=== PATIENT | female | born 1980 | race Caucasian/White ===

== ENCOUNTER 2018-01-27 22:28 | Emergency (ER) | payer OTHER ==
[2018-01-27] MEDS ORDERED: SUMAtriptan SUCCINATE 6 MG/0.5 ML VIAL SQ ONE ×2 (23:07→23:08)
--- NOTE | 2018-01-27 23:13 | ED Physician Documentation ---
Headache - HISTORIAN Historian: patient, spouse - HPI Stated Complaint: Migraine LE Chief Complaint: Headache Onset: other (30 days; worse tonight) Timing: still present, worse Exposure To: none Severity: severe Quality: similar to previous Associated Symptoms: sensitivity to light, nausea. denies: fever, chills, sweating, vomiting, neck pain, stiffness, speech problems, weakness, trouble walking, tingling, numbness, dizziness, light-headedness Further Comments: yes (38 year old female patient presents with complaints of headache for the past month. Patient has been started on HCTZ for HTN, was seen by ENT today - CT head completed, MRI completed, seen in ER in [place]. Tried topamax with no improvement. C/O photophobia and mild nausea.) - ROS NEURO/PSYCH: denies: confusion, anxiety, depression, fainting, other EYES/ENT: denies: sore throat, difficulty swallowing, sinus pain, drainage, other CVS/RESP: none GI/: denies: abdominal pain, diarrhea, problems urinating, incontinence, other MS/SKIN/LYMPH: denies: muscle aches, back pain, rash, skin lesions, swollen glands, other - PAST HX Medical History: hypertension, other (seasonal allergies) Allergies/Adverse Reactions: Allergies Allergy/AdvReac Type Severity Reaction Status Date / Time No Known Allergies Allergy Unverified 01/27/18 22:47 Home Medications: Ambulatory Orders Medication Instructions Recorded Azelastine HCl [Astelin] 137 mcg NS BID 01/27/18 Cetirizine HCl [Zyrtec] 10 mg PO DAILY 01/27/18 Hydrochlorothiazide 25 mg PO DAILY 01/27/18 [Hydrochlorothiazide] Potassium Chloride [Klor-Con M20] 20 meq PO DAILY 01/27/18 Tramadol HCl [Ultram] 50 mg PO TID PRN 01/27/18 - SOCIAL HX Smoking History: non-smoker - Family HX Family History: denies: none - VITAL SIGNS Vital Signs: Vital Signs Temp Pulse Resp BP Pulse Ox 98.6 F 96 H 16 128/77 96 01/28/18 00:04 01/28/18 00:04 01/28/18 00:04 01/28/18 00:04 01/28/18 00:04 - REVIEWED ASSESSMENTS Nursing Assessment Reviewed: Yes Vitals Reviewed: Yes Progress - Progress Progress: Medicated with imitrex SQ Patient states she feels better; c/o mild nausea and state "head feels sore". Will medicate with toradol and promethazine prior to discharge. ED Results Lab/Radiology - Orders Orders: ED Orders Category Date Time Status Ketorolac Tromethamine [Toradol] Med 01/27/18 23:32 Discontinued 60 mg IM NOW ONE Promethazine HCl [Phenergan] Med 01/27/18 23:32 Discontinued 25 mg IM NOW ONE SUMAtriptan SUCCINATE [Imitrex] Med 01/27/18 23:07 Discontinued 6 mg SQ .STK-MED ONE SUMAtriptan SUCCINATE [Imitrex] Med 01/27/18 23:08 Discontinued 6 mg SQ NOW ONE Headache Physical Exam - EXAM General Appearance: moderate distress EENT: no facial swelling, eyes nml inspection, PERRL, nml ENT, pharynx nml, other (photophobia) Respiratory: no resp distress, chest non-tender, breath sounds normal CVS: reg. 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/PSYCH Higher Functions: alert, oriented x3, nml speech, mood/affect nml Cranial: nml as tested, no evidence of acute CVA Cerebellar: nml as tested, nml gait Sensorimotor: motor nml, sensation nml Discharge Clincal Impression: Migraine Qualifiers: Migraine type: without aura Status migrainosus presence: without status migrainosus Intractability: not intractable Qualified Code(s): G43.009 - Migraine without aura, not intractable, without status migrainosus Referrals: Bo Walker [Primary Care Provider] - 2 Days Condition: Stable Disposition: 01 HOME, SELF-CARE Decision to Admit: NO Decision Time: 23:50
[2018-01-27] MEDS ORDERED: KETOROLAC TROMETHAMINE 60 MG/2 ML VIAL IM ONE (23:32)
[2018-01-27] MEDS ORDERED: PROMETHAZINE HCL 25 MG/ML VIAL IM ONE (23:32)
[2018-01-28 00:13] VITALS: BP 128/77
== END 2018-01-28 00:04 | disposition home or self-care (01) ==
LOC: ED 22:28
DX: G43.009 Migraine without aura, not intractable, without status migrainosus (principal)
CPT/HCPCS: J1885; J2550; J3030; 96372; 99283